=== PATIENT | female | born 1965 | race Caucasian/White ===

== ENCOUNTER 2018-05-02 05:45 | Emergency (ER) | payer OTHER ==
[~2018-05-02] VITALS: Ht 154.9 cm; Wt 57.4 kg
[~2018-05-02 05:45] MED LIST: ENDOCET 5-3251 EACH PO; MOTRIN800 MG PO; ZESTRIL40 MG PO
[2018-05-02 06:23] LABS: HEMATOCRIT 44.1 % (36.0-46.0); HEMOGLOBIN 15.4 G/DL (11.9-15.5); MCH 32.7 PG (29.0-34.0); MCHC 34.9 G/DL (30.0-36.0); MCV 93.6 FL (83-99); PLATELET COUNT 221 K/uL (156-360); RBC DIS.WIDTH-CV 13.2 % (11.8-14.6); RBC DIS.WIDTH-SD 45.5 % (39-53); RED BLOOD COUNT 4.71 M/uL (3.80-5.20); WHITE BLOOD COUNT 6.3 K/uL (4.1-10.2)
[2018-05-02 06:32] LABS: CHLORIDE 105 mEq/L (99-109); POTASSIUM 4.3 mEq/L (3.7-5.4); SODIUM 143 mEq/L (136-147)
[2018-05-02 06:33] LABS: GLUCOSE 89 mg/dL (70-99)
[2018-05-02 06:37] LABS: CREATININE 0.7 mg/dL (0.6-1.3); GFR ESTIMATE (CALCULATED) > 59 mL/min/
[2018-05-02 06:38] LABS: UREA NITROGEN (BUN) 14 mg/dL (9-23)
[2018-05-02 06:44] LABS: TROP-I INTERPRETATION NEGATIVE; TROPONIN-I < 0.01 ng/mL (0.0-0.30)
[2018-05-02] MEDS ORDERED: TOPROL XL25 MG PO (06:59)
[2018-05-02 09:15] LABS: TROP-I INTERPRETATION NEGATIVE; TROPONIN-I < 0.01 ng/mL (0.0-0.30)
[2018-05-02] MEDS ORDERED: PREDNISONE5 M1 PO (09:36)
[2018-05-02] MEDS ORDERED: VENTOLIN HFA18 GM IH (09:36)
[2018-05-02 10:27] VITALS: BP 114/90
== END 2018-05-02 10:28 | disposition home or self-care (01) ==
LOC: EME 05:45
PROVIDERS: Emergency Medicine
DX: R07.89 Other chest pain (principal); I10 Essential (primary) hypertension; J20.9 Acute bronchitis, unspecified; F17.200 Nicotine dependence, unspecified, uncomplicated; J44.0 Chronic obstructive pulmonary disease with (acute) lower respiratory infection; F32.9 Major depressive disorder, single episode, unspecified
CPT/HCPCS: 71046; 80048; 84484; 85027; 93005; 94640; 99281; 99285